=== PATIENT | female | born 1985 | race African-American/Black ===

== ENCOUNTER 2021-09-10 12:40 | Outpatient (RCR) | payer BC, MEDICAID, SELFPAY ==
[2021-09-10] MEDS: diphenhydrAMINE HCl CAP 25 MG CAPSULE PO (14:27)
[2021-09-10] MEDS: ACETAMINOPHEN 325 MG TABLET 650 MG PO (14:27)
[2021-09-10] MEDS: FAMOTIDINE 20 MG TABLET PO (14:27)
[2021-09-10 14:49] VITALS: BP 124/66; PULSE 78; RESP 20; TEMP 36.8; O2SAT 100
[2021-09-10 15:58] VITALS: BP 127/66
--- NOTE | 2021-09-11 14:49 | PC.NURSE ---
follow up call for covid antibody infusion. Patient states she feels about the same, maybe a little better . advised patient to call primary doctor if symptoms persist.
== END 2021-09-10 16:00 | disposition home or self-care (01) ==
LOC: AMCINF 12:40
PROVIDERS: PCP Internal Medicine; Referring Provider Internal Medicine; Visit Provider Internal Medicine Hematology & Oncology
DX: Z23 Encounter for immunization (principal); U07.1 COVID-19; J44.9 Chronic obstructive pulmonary disease, unspecified
CPT/HCPCS: A9270; J7050; M0243; Q0243

== ENCOUNTER 2025-04-06 11:32 | Outpatient (CLI) | payer BC, MEDICAID, SELFPAY ==
--- NOTE | ~2025-04-06 | MM_ITS ---
EXAMINATION: MM diagnostic samson BI w mansi HISTORY: Breast pain TECHNIQUE: Additional 3-D tomosynthesis images of the breasts were performed and synthetic 2-D images were generated. CAD analysis was submitted and interpreted. COMPARISON: None BREAST PARENCHYMAL COMPOSITION: Not dense: There are scattered areas of fibroglandular density. FINDINGS: The breasts are symmetric without suspicious mass, calcifications or architectural distorti on. IMPRESSION: 1. No mammographic evidence for malignancy in either breast. 2. Routine yearly screening mammogram and regular clinical breast examination are recommended. BI-RADS Category 1: Negative Reviewed, dictated and finalized at location A. IMPRESSION: 1. No mammographic evidence for malignancy in either breast. 2. Routine yearly screening mammogram and regular clinical breast examination a re recommended. BI-RADS Category 1: Negative
--- OUTSIDE RECORDS SUMMARY | 2025-04-06 11:35 | XMS_ITS | Clinical Summary ---
Author Organization [facility] Address [address] [place] [address] Care Team Providers Care Coal Sample Tester Name Role Phone Candelaria Tello MD Primary Care Provider [phone] Source Comments [facility],non-owned Affiliates and Associated Physician Practices is amultiple site organization consisting of ambulatory clinics and hospital sitesin [place], [place], [place] and [place]. This disclosure is being madepursuant to the Care Everywhere program and may not contain all information available regarding this patient. Last updated 18.[facility] Allergies Active Allergy Reactions Criticality Noted Date Comments Citrullus Vulgaris Itching,Wheezing Medium 12/01/2024 watermelon Latex Itching Medium 10/30/2016 Peanut Extract Allergy Skin Test Itching,Wheezing Medium 12/01/2024 Medications * This document contains information received from the source organization and may not represent a complete record from that organization. * Be aware that medications may not be up to date on this document. Alwaysverify current medications with the patient. albuterol HFA (Proventil; Ventolin; Proair) 108 (90 Base) MCG/ACT inhaler Inhale 2 (two) puffs by mouth every 6 hours as needed 10/17/20 24 Active Slynd 4 MG TABS tablet Take 1 (one) tablet by mouth once daily 06/30/20 24 Active escitalopram (Lexapro) 20 MG tablet Take 1 (one) tablet by mouth once daily 11/28/20 24 Active Trelegy Ellipta 100-62.5-25 MCG/ACT Inhale 1 (one) puff by mouth once daily 10/17/20 24 Active amitriptyline (Elavil) 10 MG tablet Take 2 (two) tablets by mouth at bedtime 12/18/19 25 Active HYDROcodone-ac etaminophen (Midvale) 5-325 MG tablet Take 1 (one) tablet by mouth 2 times daily as needed For pain. 12/08/19 25 Active amoxicillin-cl avulanate (Augmentin) 875-125 MG tablet Take 1 (one) tablet by mouth 2 times daily with morning and evening meal 20 tablet 01/11/20 25 Active Additional Information Patient not taking.Reported on 02/03/2025 predniSONE (Deltasone) 10 MG tablet 40mg po qam x 2days, 30mg po qam x 2days, 20mg po qam x 2days, 10mg po qam x 2days 20 tablet 01/11/20 25 Active Additional Information Patient not taking.Reported on 02/03/2025 azithromycin (Zithromax) 250 MG tablet Take 2 tabs po day one, then take 1 tab po daily for 4 days. 6 tablet 03/30/20 25 Active ferrous sulfate 325 (65 FE) MG tablet Take 1 (one) tablet by mouth 3 times daily with meals Discontin ued(List Clean-Up) Vit-Fe Fumarate-FA ( VITAMIN) 28-0.8 MG tablet Take 1 (one) tablet by mouth once daily 025 Discontin ued(List Clean-Up) fluticasone-sa lmeterol hfa (Advair HFA) 230-21 MCG/ACT Inhale 2 (two) puffs by mouth 2 times daily 03/17/20 24 025 Discontin ued(List Clean-Up) Wegovy 0.5 MG/0.5ML pen Inject 0.5 (one-half) mg subcutaneously every 7 days 11/16/20 24 025 Discontin ued(List Clean-Up) valACYclovir (Valtrex) 1 GM tablet Take 1 (one) tablet by mouth once 12/06/19 25 025 Discontin ued(List Clean-Up) ondansetron, disintegrating , (Zofran ODT) 4 MG tablet DISSOLVE ONE TABLET BY MOUTH EVERY 8 HOURS NEEDED FOR NAUSEA. 1ST LINE FOR UP TO 3 DAYS 01/15/20 25 025 Discontin ued(List Clean-Up) citalopram (CeleXA) 20 MG tablet Take 1 (one) tablet by mouth once daily 025 Discontin ued(List Clean-Up) Active Problems Problem Noted Date Diagnosed Date Chronic sinusitis 01/03/2025 Allergic rhinitis 01/03/2025 Sickle cell trait 05/27/2018 Alpha-thalassemia 01/25/2016 Overview (01/03/2025): HEME: Dr. Pritchard at [facility] Anemia 02/24/2012 Overview (01/03/2025): Anemia Encounters Date Type Department Care Team Description 03/30/2025 Telephone [facility] [address] [place] [address] Abdiel Allen MD Sinusitis 02/03/2025 8:45 AM PSYCH SPECIALIST Office Visit [facility] - ENT [address], [facility] [address] [place] [address] Abdiel Allen MD Nasal congestion (Primary Dx); Recurrent sinus infections; Daily headache; Nasal deformity, acquired; Sinus pressure; Nasal drainage; Acute cough; Chronic rhinitis; Chronic pansinusitis; Nasal turbinate hypertrophy; Deviated septum 02/03/2025 Travel 01/20/2025 Travel 01/11/2025 11:30 AM PSYCH SPECIALIST - 01/11/2025 11:59 PM PSYCH SPECIALIST Hospital Encounter [facility] [address] [place] [address] Abdiel Allen MD Discharge Disposition: Home or Self Care 01/11/2025 10:30 AM PSYCH SPECIALIST Office Visit [facility] - [facility]NT [address], [facility] [address] [place] [address] Abdiel Allen MD Nasal congestion (Primary Dx); Sinus pressure; Nasal drainage; Recurrent sinus infections 01/11/2025 Travel 01/10/2025 Travel 01/09/2025 Telephone [facility] [address] [facility], [place] [address] Abdiel Allen MD Sinus Problem from Last 3 Months Immunizations Immunization Administration Dates Next Due INFLUENZA VACCINE, TRIV. (AF LURIA, FLUZONE TRIVALENT; 6MO+) (IIV3) 08/30/2012 PNEUMOCOCCAL PPV VACCINE 11/30/2004 TDAP (7yrs+) 12/29/2019,12/05/2014 Social History Tobacco Use Types Packs/Day Years Used Date Smoking Tobacco: Never Smokeless Tobacco: Never Tobacco Cessation:Counseling Given: Not Answered Alcohol Use Standard Drinks/Week Comments No 0 (1 standard drink = 0.6 oz pur e alcohol) Comments No Sex and Gender Information Value Date Recorded Sex Assigned at Not on file Legal Sex Female 6:06 AM PSYCH SPECIALIST Gender Identity Not on file Sexual Orientation Not on file Last Filed Vital Signs Vital Sign Reading Time Taken Comments Blood Pressure 120/80 02/03/2025 8:41 AM PSYCH SPECIALIST Pulse 101 02/03/2025 8:41 AM PSYCH SPECIALIST Temperature - - Respiratory Rate 18 10/30/2016 10:00 PM PSYCH SPECIALIST Oxygen Saturation - - Inhaled Oxygen Concentration - - Weight 76.2 kg (168 lb) 03/29/2025 11:27 AM CDT Height 162.6 cm (5' 4 ) 03/29/2025 11:27 AM CDT Body Mass Index 28.84 03/29/2025 11:27 AM CDT Plan of Treatment Upcoming Encounters Date Type Department Care Team (Latest Contact Info) Description 04/07/2025 7:25 AM CDT Hospital Encounter [facility] [address] [place] [address] Abdiel Allen MD [address] [place] [address] Surgery General 04/07/2025 7:25 AM CDT Anesthesia Event [facility] [address] [place] [address] Maria Dolores Michael, BAGG[employer] PORTER HEAD-SUPERVISING FIRE MARSHAL [address] [facility] [place] [address] 04/07/2025 7:25 AM CDT - 04/07/2025 10:45 AM CDT Surgery [facility] [address] [place] [address] Abdiel Allen MD [address] [facility] [place] [address] ETHMOIDECTOMY, SPHENOIDOTOMY, MAXILLARY ANTROSTOMY, FRONTAL SINUSOTOMY, SEPTOPLASTY, TURBINOPLASTY, OUTFRACTURE NASAL TURBINATES, BILATERAL 04/12/2025 9:45 AM CDT Office Visit [facility] - ENT [address], [place] [address] [place] [phone] Abdiel Allen MD [address] [facility] [address] [place] [address] 04/27/2025 9:00 AM CDT Office Visit [facility] - Family Medicine [address] [place] [address] [place] [address] [facility] [address] [place] [address] Scheduled Procedures Name Priority Associated Diagnoses Date/Ti me ENDOSCOPIC SINUS WITH NAVIGATION Chronic pansinusitis Deviated nasal septum Nasal turbinate hypertrophy 04/07/2025 7:25 AM CDT Health Maintenance Due Date Last Done Comments HIV SCREENING 2001 HEPATITIS B VACCINE (1 of 3 - 19+ 3-dose series) 2005 PAP SMEAR 03/11/2020 03/11/2017 COVID-19 VACCINE ( - 2023-2 5 season) 2024 DEPRESSION SCREENING 11/30/2024 INFLUENZA VACCINE (Season Ended) 2025 08/12/2019, 09/29/2018, 08/30/2012 DTAP/TDAP/TD VACCINES (3 - T d or Tdap) 12/29/2029 12/29/2019, 12/05/2014 ZOSTER VACCINE (1 of 2) 2036 PNEUMOCOCCAL VACCINE Aged Out 11/30/2004 No long er eligible based on patient's age to complete this topic HEPATITIS C SCREENING Completed 10/07/2024 , 10/07/2024 HIB VACCINE Aged Out No longer eligi ble based on patient's age to complete this topic HPV VACCINE Aged Out No longer eligi ble based on patient's age to complete this topic MENINGOCOCCAL (Group B) VACCINE SHARED DECISION-MAKING Aged Out No longer eligible based on patient's age to complete this topic MENINGOCOCCAL GROUPS A/C/Y/W VACCINE Aged Out No longer eligible b ased on patient's age to complete this topic Procedures Procedure Name Priority Date/Time Associated Diagnosis Comments CT SINUS WO CONTRAST Routine 01/11/2025 12:09 PM PSYCH SPECIALIST Sinus pressure Recurrent sinus infections Nasal drainage from Last 3 Months Results * CT Sinus Wo Contrast (01/11/2025 12:09 PM PSYCH SPECIALIST) Anatomical Region Laterality Modality Head Computed Tomogra phy 01/11/2025 2:33 PM PSYCH SPECIALIST Impressions 01/11/2025 3:37 PM PSYCH SPECIALIST IMPRESSION: 1.Moderate paranasal sinus disease with sclerotic changes of the maxillary sinuses, suggestive of chronic pansinusitis. Air-fluid levels within the bilateral maxillary sinuses are suggestive of acute bilateral maxillary sinusitis. Obstruction of the bilateral ostiomeatal complexes and frontal recesses. 2.Partial opacification of the bilateral mastoid air cells. The report is dictated by Pretty Hay MD, (residential air sealing technician) I, Kevin Feliz MD have personally reviewed and interpreted this examination/study. > Interpreting Provider: Kevin Feliz MD on 01/11/2025 3:37 PM Narrative 01/11/2025 3:37 PM PSYCH SPECIALIST PROCEDURE: CT SINUS WO CONTRAST, DATE/TIME OF EXAM: 01/11/2025 12:10 PM, LOCATION [facility] INDICATION: J34.89: Sinus pressure J32.9: Recurrent sinus infections J34.89: Nasal drainage ADDITIONAL CLINICAL INFORMATION: Ordering Provider Reason For Exam: Technologist Note: Additional: EXAMINATION: Computed tomography (CT) of the paranasal sinuses without contrast TECHNIQUE: CT of the paranasal sinuses was performed without contrast according to standard protocol. CT dose reduction technique was used, including Automated Exposure Control. COMPARISON: No prior study is available for comparison at the time of this dictation. FINDINGS: Moderate paranasal sinus disease with partial opacification of the bilateral maxillary and ethmoid sinuses. Air-fluid levels within the bilateral maxillary sinuses are suggestive of acute bilateral maxillary sinusitis. Sclerotic changes of the maxillary sinuses, right greater than left, suggestive of chronic pansinusitis. No bone erosions. The ostiomeatal complexes are obstructed. Partial opacification of the bilateral sphenoid and frontal sinuses. The frontal recesses are obstructed.The nasal septum is at midline. The orbits including the globes, optic nerves, retrobulbar fat and extraocular muscles appear normal. The hard palate, mandible, and temporomandibular joints appear normal. The mastoid air cells are partially opacified bilaterally. No acute facial bone fractures are identified. No soft tissue abnormality is identified. Procedure Note Kevin Feliz MD - 01/11/2025 PROCEDURE: CT SINUS WO CONTRAST, DATE/TIME OF EXAM: 01/11/2025 12:10PM, LOCATION [facility] INDICATION: J34.89: Sinus pressure J32.9: Recurrent sinus infections J34.89: Nasal drainage ADDITIONAL CLINICAL INFORMATION: Ordering Provider Reason For Exam: Technologist Note: Additional: EXAMINATION: Computed tomography (CT) of the paranasal sinuses without contrast TECHNIQUE: CT of the paranasal sinuses was performed without contrast according to standard protocol. CT dose reduction technique was used, including Automated Exposure Control. COMPARISON: No prior study is available for comparison at the time ofthis dictation. FINDINGS: Moderate paranasal sinus disease with partial opacification of the bilateral maxillary and ethmoid sinuses. Air-fluid levels within the bilateral maxillary sinuses are suggestive of acute bilateral maxillary sinusitis. Sclerotic changes of the maxillary sinuses, right greaterthan left, suggestive of chronic pansinusitis. No bone erosions. Theostiomeatal complexes are obstructed. Partial opacification of the bilateralsphenoid and frontal sinuses. The frontal recesses are obstructed.The nasalseptum is at midline. The orbits including the globes, optic nerves, retrobulbar fat and extraocular muscles appear normal. The hard palate, mandible, and temporomandibular joints appear normal. The mastoid air cells arepartially opacified bilaterally. No acute facial bone fractures are identified. No soft tissue abnormality is identified. IMPRESSION: 1.Moderate paranasal sinus disease with sclerotic changes of themaxillary sinuses, suggestive of chronic pansinusitis. Air-fluid levels within the bilateral maxillary sinuses are suggestive of acute bilateral maxillary sinusitis. Obstruction of the bilateral ostiomeatal complexes andfrontal recesses. 2.Partial opacification of the bilateral mastoid air cells. The report is dictated by Pretty Hay MD, (residential air sealing technician) I, Kevin Feliz MD have personally reviewed and interpreted this examination/study. > Interpreting Provider: Kevin Feliz MD on 01/11/2025 3:37 PM Abdiel Allen MD CT ORDERABLES Final Resu lt from Last 3 Months Insurance [facility] MEDICAID - OUT OF STATE [facility] MEDICAID - [place] Care Teams Coal Sample Tester Relationship Specialty [place] [address] [phone] PCP - General Family Medicine 01/03/25
--- OUTSIDE RECORDS SUMMARY | 2025-04-06 11:35 | XMS_ITS | Clinical Summary ---
Author Organization [facility] Address [address], [address] [address] Phone Care Team Providers Care Tax Appraiser Name Role Phone Ayana Serrano MD Unavailable [phone] Elma Sanchez MD Primary Care Provider [phone] Allergies Active Allergy Reactions Criticality Noted Date Comments Latex Rash 01/25/2016 Peanut Extract Allergy Skin Test Itching Medications ferrous sulfate 325 (65 Fe) MG Tablet Take 1 Tab by mouth 2 times daily. Reported on 02/25/2017 180 Tab 7 Active Additional Information Patient not taking.Reported on 01/15/2025 poly-vitamin - IRON (POLY--ELOISA WITH IRON) Solution Take 1 mL by mouth three times a week. Active budesonide-formo terol fumarate (SYMBICORT) 80-4.5 MCG/ACT AerosolIndicatio ns:Moderate asthma with acute exacerbation, unspecified whether persistent take 2 Puffs by inhalation 2 times daily. 1 Inhaler 3 8 Active Additional Information Patient not taking.Reported on 01/15/2025 montelukast (SINGULAIR) 10 MG TabletIndication s:Moderate asthma with acute exacerbation, unspecified whether persistent Take 1 Tab by mouth daily. 90 Tab 3 8 Active sertraline (ZOLOFT) 50 MG TabletIndication s:Post depression Take 1 Tab by mouth daily. 90 Tab 1 9 Active Additional Information Patient not taking.Reported on 01/15/2025 albuterol (PROAIR HFA) 108 (90 Base) MCG/ACT Aerosol SolutionIndicati ons:Mild intermittent asthma without complication take 2 Puffs by inhalation every 4 hours as needed for Wheezing. 8.5 g 4 9 Active citalopram (CeleXA) 20 MG Tablet Take 20 mg by mouth daily. Active Active Problems Problem Noted Date Diagnosed Date Bilateral foot pain 12/29/2018 Mild intermittent asthma without complication Fatigue 09/27/2018 Thalassemia 05/27/2018 Sickle cell trait 05/27/2018 Iron deficiency 05/27/2018 Asthma 01/25/2016 Alpha-thalassemia 01/25/2016 Overview (01/25/2016): HEME: Dr. Pritchard at [facility] Encounters Date Type Department Care Team Description 01/15/2025 2:25 PM BANQUET MANAGER [facility] [address] [place] [address] Carolina Dang APRN, BRYCE Gastroenteritis (Primary Dx); Vomiting, unspecified vomiting type, unspecified whether nausea present; Diarrhea, unspecified type; Body aches Discharge Disposition: Discharged to home or Selfcare 01/15/2025 Travel from Last 3 Months Immunizations Immunization Administration Dates Next Due Influenza Vaccine greater than 3 yrs 08/30/2012 Pneumococcal Vaccine, Unspecified Formulation TDAP Vaccine 12/05/2014 Family History Medical History Relation Name Comments Heart Attack Father Asthma Mother Hypertension Mother Relation Name Status Comments Father Mother Alive Social History Tobacco Use Types Packs/Day Years Used Date Smoking Tobacco: Never Smokeless Tobacco: Never Tobacco Cessation:Counseling Given: No Alcohol Use Standard Drinks/Week Comments No 0 (1 standard drink = 0.6 oz pur e alcohol) Comments No Sex and Gender Information Value Date Recorded Sex Assigned at Not on file Legal Sex Female 12:08 AM CDT Gender Identity Not on file Sexual Orientation Not on file Last Filed Vital Signs Vital Sign Reading Time Taken Comments Blood Pressure 112/68 01/15/2025 2:31 PM BANQUET MANAGER Pulse 108 01/15/2025 2:31 PM BANQUET MANAGER Temperature 36.7 C (98.1 F) 01/15/2025 2:31 PM BANQUET MANAGER Respiratory Rate 18 01/15/2025 2:31 PM BANQUET MANAGER Oxygen Saturation 100% 01/15/2025 2:31 PM BANQUET MANAGER Inhaled Oxygen Concentration - - Weight 73.8 kg (162 lb 12.8 oz) 05/06/2019 2:24 PM CDT Height 165.1 cm (5' 5 ) 05/06/2019 2:24 PM CDT Body Mass Index 27.09 05/06/2019 2:24 PM CDT Plan of Treatment Health Maintenance Due Date Last Done Comments Hepatitis C Virus (HCV) Screening 1985 Hepatitis B Immunization (1 of 3 - 19+ 3-dose series) 2005 Pneumococcal Immunization Combined (1 of 2 - PCV) 2005 11/30/2004, 11/30/2004 HPV/Cotest 2016 Cervical Cancer Screening (CCS) 03/11/2020 Pap Smear 03/11/2020 03/11/2017 Influenza Immunization (#1) 2024 08/30/2012 SARS-COV-2 Immunization ( season) 2024 Td Immunization Every 10 Yea rs (Adults With 1 Tdap) 12/29/2029 12/29/2019, 12/05/2014 Respiratory Syncytial Virus (RSV) Immunization (Adult) (1 - 1-dose 75+ series) 2061 Meningococcal Immunization (ACWY) Aged Out No longer eligible b ased on patient's age to complete this topic Rotavirus Immunization Aged Out No lo nger eligible based on patient's age to complete this topic Procedures Procedure Name Priority Date/Time Associated Diagnosis Comments POC INFLUENZA A AND B BY MOLECULAR Routine 01/15/2025 2:40 PM BANQUET MANAGER Vomiting, unspecified vomiting type, unspecified whether nausea present Diarrhea, unspecified type Body aches POC SARS-COV-2 BY MOLECULAR Routine 01/15/2025 2:35 PM BANQUET MANAGER Vomiting, unspecified vomiting type, unspecified whether nausea present Diarrhea, unspecified type Body aches PATHOLOGY CYTOLOGY JAVA SOFTWARE ENGINEER Routine 03/11/2017 from Last 3 Months or Most Recently Relevant to Health Maintenance Results * POC INFLUENZA A AND B BY MOLECULAR (01/15/2025 2:40 PM BANQUET MANAGER) INFLUENZA A RNA Negative Negative, Invalid INFLUENZA B RNA Negative Negative, Invalid PROCEDURE CONTROL Valid 01/15/2025 2:40 PM BANQUET MANAGER us Carolina Dang APRN, BRYCE POINT OF CARE TEST ING (MANUAL) Final Result * POC SARS-COV-2 BY MOLECULAR (01/15/2025 2:35 PM BANQUET MANAGER) SARSCOV2 Negative Negative, INVALID PROCEDURE CONTROL Valid 01/15/2025 2:35 PM BANQUET MANAGER us Carolina Dang APRN, BRYCE POINT OF CARE TEST ING (MANUAL) Final Result * PATHOLOGY CYTOLOGY JAVA SOFTWARE ENGINEER (03/11/2017) Specimen of unknown material (specimen) us Not On File Provider PATHOLOGY/CYTOLOGY ORDERABL ES Final Result from Last 3 Months or Most Recently Relevant to Health Maintenance Insurance [facility] Care Teams Tax Appraiser Relationship Specialty Start Date End Date Elma Sanchez MD [address] [place] [address] PCP - General Internal Medicine 04/20/19 Ayana Serrano MD Consulting Physician Obstetrics & Gynecology 08/25/17
--- OUTSIDE RECORDS SUMMARY | 2025-04-06 11:35 | XMS_ITS ---
Author Organization [facility] Address [address] [facility] [address] [place], [place] [address] Care Team Providers Care Seed Technician Name Role Phone Elma Sanchez Primary Care Provider Willi Dennison Unavailable [phone] REASON FOR VISIT IOB//aw Encounters Encounter Location Date Provider Diagnosis [facility] [address] [place] [phone] 01/13/2025 Willi Calderon Plan Of Treatment No Information Progress Notes * Katherine BELLEDOB:[birth year] (39 yo F)Acc No.[id number]:01/13/2025 Progress Note Patient: González PELAEZah Provider: Josie Calderon DO :1985 A ge:39 Y S ex:Female Date:01/13/2025 Address:[address] [place], [place] [address] [facility] Pcp:Elma Sanchez Subjective: * Chief Complaints: * 1 . IOB//aw. * Medical History: Objective: * Vitals: * Physical Examination: Assessment: Plan: * Treatment: * * Electronic signature of Savanna Calderon DO, [id number] on 04/06/2025 at 11:35 AM CDT Sign off status: Pending * Provider: Josie Calderon DO Date: 01/13/2025 Generated for Vonniei ng/Faxing/eTransmitting on: 0 04/06/2025 11:35 AM CDT
--- OUTSIDE RECORDS SUMMARY | 2025-04-06 11:35 | XMS_ITS ---
Author Organization [facility] Address [address] [facility] [address] [place], [place] [id number] Care Team Providers Care Cotton Ginner Helper Name Role Phone Elma Sanchez Primary Care Provider UnavailWilli Mack Unavailable [phone] REASON FOR VISIT recheck IOB//aw Encounters Encounter Location Date Provider Diagnosis [facility] [address] [facility] [address] [place], [place] [phone] 01/25/2025 Willi Calderon Plan Of Treatment No Information Progress Notes * Katherine BELLEDOB:[birth year] (39 yo F)Acc No.[id number]:01/25/2025 Progress Note Patient: Katherine PELAEZ Provider: Josie Calderon DO :1985 A ge:39 Y S ex:Female Date:01/25/2025 Address:[address] [place], [place] [address] Pcp:Elma Sanchez Subjective: * Chief Complaints: * 1 . recheck IOB//aw. * HPI: S inusitis: 11/07 has had 4 abx in the past year. Augmentin, Zpack, and amoxicillin. Has tried tns- Flonase for over 6 weeks- pcp sent for ct sinus done at [facility]. Has at least 4 sinus infections within a year. Sense of smell has diminished. She gets a lot of drainage, congestion, hard to breathe out of nose, pain/pressure in face with her sinus infections. Has also tried and failed astelin.She also uses sinus rinses daily. A llergy: hx allergies on flonase- tried astelin as well. usually just some seasonal. * Medical History: Objective: * Vitals: * Physical Examination: Assessment: Plan: * Treatment: * * Electronic signature of Savanna robb DO Yumiko, [id number] on 04/06/2025 at 11:35 AM CDT Sign off status: Pending * Provider: Josie Calderon DO Date: 0 01/25/2025 Generated for Faustino dover/Allen/Donovan on: 0 04/06/2025 11:35 AM CDT History and Physical Notes * HPI (History of Present Illness) Category Sub-Category Detail Notes Category Not es Sinusitis 11/07 has had 4 abx in the past year. Augmentin, Zpack, and amoxicillin. Has tried tns- Flonase for over 6 weeks- pcp sent for ct sinus done at [facility]. Has at least 4 sinus infections within a year. Sense of smell has diminished. She gets a lot of drainage, congestion, hard to breathe out of nose, pain/pressure in face with her sinus infections. Has also tried and failed astelin.She also uses sinus rinses daily Allergy hx allergies on flonase- tried astelin as well. usually just some seasonal.
--- OUTSIDE RECORDS SUMMARY | 2025-04-06 11:35 | XMS_ITS | Patient Health Record ---
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 If intended option is not shown, discontinue and re-order from Quick Search* Active HYDROcodone-Acetamino phen 7.5-325 MG 1 tablet Orally take one tablet 1 hour prior to procedure then every 6 hours prn pain for 4 days 11/15/2024 Active diazePAM 10 MG 1 tablet Orally take one tablet 1 hour prior to procedure then second tablet upon arrival to procedure for 1 days 11/15/2024 Active Amitriptyline HCl *Please review and pick correct strength-formulatio n from [employer] options. If intended option is not shown, discontinue and re-order from Quick Search* Active Escitalopram Oxalate *Please rev iew and pick correct strength-formulatio n from [employer] options. If intended option is not shown, discontinue and re-order from Quick Search* Active Albuterol Sulfate *Please review and pick correct strength-formulatio n from [employer] options. If intended option is not shown, discontinue and re-order from Quick Search* Active Advair HFA *Please review a nd pick correct strength-formulatio n from [employer] options. If intended option is not shown, discontinue and re-order from Quick Search* Active Problems Problem Type SNOMED Code ICD Code Onset Dates Problem Status W/U Status Risk Notes Problem Allergic rhinitis, unspecified (J30.9) Active confirmed Problem Chronic sinusitis (22525992) Chronic sinusitis, unspecified (J32.9) Active confirmed Encounters Encounter Location Date Provider [facility] [address] [facility] [address] [place], [place] [id number] 11/12/2024 Provider Migration [facility] [facility] [address] [place], [place] [id number] 11/07/2024 Willi Calderon Allergic rhinitis, unspecified J30.9 ; Nasal congestion R09.81 ; Hypertrophy of nasal turbinates J34.3 ; Acute recurrent pansinusitis J01.41 and Deviated nasal septum J34.2 [facility] [address] [facility] [address] [place], [place] [id number] 11/15/2024 Willi Calderon Allergic rhinitis, unspecified J30.9 ; Nasal congestion R09.81 ; Hypertrophy of nasal turbinates J34.3 ; Acute recurrent pansinusitis J01.41 and Deviated nasal septum J34.2 [facility] [address] [facility] [address] [place], [place] [id number] 11/15/2024 Willi Calderon [facility] [address] [facility] [address] [place] [place] [id number] 01/09/2025 iWlli Calderon Assessments Encounter Date Diagnosis (ICD Code) Assessment Notes Treatment Notes Treatment Clinical Notes Section Notes 11/07/2024 Allergic rhinitis, unspecified (ICD-10 - J30.9) On TNS, topical antihistamines with control discussed possible mqt and immunotherapy, will stay on meds for now 11/15/2024 Allergic rhinitis, unspecified (ICD-10 - J30.9) On TNS, topical antihistamines with control discussed possible mqt and immunotherapy, will stay on meds for now 11/15/2024 Nasal congestion (ICD-10 - R09.81) 11/07/2024 Hypertrophy of nasal turbinates (ICD-10 - J34.3) 11/07/2024 Nasal congestion (ICD-10 - R09.81) 11/07/2024 Acute recurrent pansinusitis (ICD-10 - J01.41) Meets criteria for Acute recurrent sinusitis. has had appropriate medical management with pcp to this point Meds used include amoxicillin, augmentin, azithromycin, oral steroids, TNS, saline irrigations symptoms are facial pressure/pain over sinuses, decreased smell, yellow nasal drainage, congestion. her symptoms typically improve with antibiotics and recurr multiple times per year. she has had a recent non contrast CT of her sinuses, the report shows multisinus mucosal thickening. will need to obtain images and discuss surgical options. 11/15/2024 Hypertrophy of nasal turbinates (ICD-10 - J34.3) 11/15/2024 Acute recurrent pansinusitis (ICD-10 - J01.41) Meets criteria for Acute recurrent sinusitis. 7 infections in the last 12 mo has had appropriate medical management with pcp to this point Meds used include amoxicillin, augmentin, azithromycin, oral steroids, TNS, saline irrigations symptoms are facial pressure/pain over sinuses, decreased smell, yellow nasal drainage, congestion. her symptoms typically improve with antibiotics and recurr multiple times per year. she has had a recent non contrast CT of her sinuses, the report shows multisinus mucosal thickening. reviewed today with hypertrophic turbinates, left max opacification. frontal frontal thickening. Given recurrent acute, I recommend that we treat b/l max, frontal, sphenoid, turbinates. Bleeding, general anesthesia, infection, CSF leak, further surgery, anosmia, septal perforation, , CVA, and atrophic rhinitis, injury to adjacent structures, including teeth, injury to the orbit causing potential blindness. 11/07/2024 Deviated nasal septum (ICD-10 - J34.2) 11/15/2024 Deviated nasal septum (ICD-10 - J34.2) 11/07/2024 Other topical nasal steriods, claire med sinus rinse, MQT and CT sinuses The multiple etiologies of chronic sinus disease were discussed with the patient today, including: anatomical obstruction, immune dysfunction, allergies, and vasomotor rhinitis. Some patients have anatomical/mechani shashi obstructions which prevent the sinuses from draining properly. Some patients have immune dysfunctions which make them prone to chronic infections. Some patients have a condition called vasomotor rhinitis, which is a condition where the nose reacts to pollutants, colognes, or barometric pressure changes. Some patients may also have underlying allergies which exacerbate or cause their sinus symptoms. All of the above conditions are exacerbated in patients who use tobacco due to the chronic irritant exposure. Also, the patient was told that sinusitis may trigger headaches but not all headaches are sinus related. Each of these possible etiologies will be evaluated during this patient's care. Plan Of Treatment Pending Test Test Name Order Date Submucosal resection of turbinate 2023 Balloon Sphenoid * 11/15/2024 Balloon MMA* 11/15/2024 Balloon Frontal * 11/15/2024 Insurance Providers Payer Name Payer Address Payer Phone Subscriber Number Group Number Insured Name Patient Relationship to Insured Coverage Start Date Coverage End Date [facility] [address] [place] [address] [id number] Katherine Patel Self - patient is the insured Medical (General) History Medical History History ICD Code Anxiety disorder Sinusitis Nose problems asthma Thalassemia Surgical History Surgery Date(Month/Year) tonsillectomy 1989 cholecystectomy 2020
--- OUTSIDE RECORDS SUMMARY | 2025-04-06 11:35 | XMS_ITS | Clinical Summary ---
Author Organization [facility] Address [address] [place] [address] Phone Care Team Providers Care Toxicologist Name Role Phone [facility] [place], External Provider Primary Care Provider U navailable Allergies No known active allergies Medications fluticasone propion-salmetero L (ADVAIR DISKUS,WIXELA INHUB) 100-50 mcg/dose disk inhaler Take 1 Puff by inhalation 2 times daily. Active albuterol (PROVENTIL,VENTOL IN) 0.63 mg/3 mL Solution for Nebulization Take 0.63 mg by inhalation one time only. Active amitriptyline HCl (AMITRIPTYLINE ORAL) Take by mouth. Activ e Social History Tobacco Use Types Packs/Day Years Used Date Smoking Tobacco: Never Tobacco Cessation:Counseling Given: Not Answered Feeling Safe Answer Date Recorded Are you in a relationship wi th someone who hurts you emotionally and/or physically? No 09/24/2023 Comments Unknown Sex and Gender Information Value Date Recorded Sex Assigned at Not on file Legal Sex Female 8:51 AM CDT Gender Identity Not on file Sexual Orientation Not on file Last Filed Vital Signs Vital Sign Reading Time Taken Comments Blood Pressure 117/77 09/24/2023 1:12 PM CDT Pulse 83 09/24/2023 1:12 PM CDT Temperature 36.8 C (98.2 F) 09/24/2023 1:12 PM CDT Respiratory Rate 18 09/24/2023 1:12 PM CDT Oxygen Saturation 100% 09/24/2023 1:12 PM CDT Inhaled Oxygen Concentration - - Weight 70.3 kg (155 lb) 09/24/2023 11:21 AM CDT Height 165.1 cm (5' 5 ) 09/24/2023 11:21 AM CDT Body Mass Index 25.79 09/24/2023 11:21 AM CDT Plan of Treatment Health Maintenance Due Date Last Done Comments HEPATITIS B VACCINES (1 of 3 - 19+ 3-dose series) 2005 HPV/Cotest (21-29) 2007 CERVICAL CANCER SCREENING 2016 HPV/Cotest (30-65) 2016 PAP SMEAR 2016 INFLUENZA VACCINE (#1) 2024 08/30/2012 DTAP/TDAP/TD VACCINES (3 - Td or Tdap) 12/29/2029 12/29/2019, 12/05/2014 HPV VACCINES Aged Out No longer eligi ble based on patient's age to complete this topic [place] [address] [employer] P[employer] 

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
--- OUTSIDE RECORDS SUMMARY | 2025-04-06 11:36 | XMS_ITS | Referral Summary ---
Author Organization [facility] leia Address [address] [place] [address] Care Team Providers Care Traffic Rate Analyst Name Role Phone Elton Gallego MD Unavailable [phone] Cassie Billy MD Unavailable [phone] Willi Figueroa MD Primary Care Provi karina Encounters Date Type Department Care Team Description 02/22/2025 7:30 AM CDT Office Visit [facility] Primary Care at [address] [place] [phone] Willi Figueroa MD Encounter to establish care with new doctor (Primary Dx); Class 1 obesity without serious comorbidity with body mass index (BMI) of 30.0 to 30.9 in adult, unspecified obesity type; Mild intermittent asthma without complication; Chronic pansinusitis; Anxiety; Other insomnia; Mixed hyperlipidemia 01/09/2025 4:12 PM 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 If she has a 0 score no further investigation will be required. I will plan to see her in follow-up to discuss any score other than 0. Family history of coronary artery disease in fat her 04/17/2021 Biliary dyskinesia 03/05/2021 Overview (03/05/2021): Added automatically from request for surgery [id number] Assessment & Plan (03/28/2021 3:39 PM CDT): [...] (01/03/2021): Added automatically from request for surgery [id number] Assessment & Plan (03/05/2021 11:52 AM CDT): HIDA scan is consistent with biliary dyskinesia. Given the persistent and worsening symptoms will set her up for cholecystectomy. Risks and benefits have been explained. This has included post cholecystectomy diarrhea. Postoperative restrictions have been gone over as well. Pre-admission testing will be sent in. All questions have been answered. Assessment & Plan (01/12/2021 5:30 PM FISHERIES INSPECTOR): Chronic post prandial abdominal pain. Schedule EGD then HIDA scan to evaluate gall bladder dysfunction. Maintain low fat diet. Continue Nexium daily for now. Follow up 1 month. Sprain of medial collateral ligament of right kn ee 09/03/2019 Mild intermittent asthma without complication Fatigue 09/27/2018 Iron deficiency 05/27/2018 Sickle cell trait 05/27/2018 Alpha-thalassemia 01/25/2016 Overview (01/03/2021): Overview: HEME: [facility] Pritchard at [facility] Anemia 10/23/2014 Overview (03/05/2017): Anemia Infection of ear 10/04/2014 Overview (03/05/2017): Ear infection Resolved Problems Problem Noted Date Diagnosed Date Resolved Date Bilateral foot pain 12/29/2018 02/23/20 25 Asthma 01/25/2016 02/22/2025 Immunizations Immunization Administration Dates Next Due Hep B, Adolescent or Pediatric 03/06/1999,1997,09/22/1997 Influenza, Quadrivalent, Tana l Culture-based MDCK, Antibiotic Free, Intramuscular 08/12/2019 Influenza, Trivalent, IM (MDV) 08/30/2012 Influenza, Unspecified 09/29/2018 Pneumococcal Polysaccharide PPV23 12/30/2018,11/2004 Sars-CoV-2, Unspecified 01/28/2024,12/09/2021, Tdap 12/29/2019,01/17/2017,12/05/2014 Social History Tobacco Use Types Packs/Day Years [...] on file Legal Sex Female 5:59 PM FISHERIES INSPECTOR Gender Identity Not on file Sexual Orientation [...] 02/22/2025 7:40 AM CDT Plan of Treatment Not on file Procedures Procedure Name Priority Date/Time Associated Diagnosis Comments XR CHEST 1 VIEW ED 01/09/2025 3:38 PM FISHERIES INSPECTOR INFLUENZA A/B, RSV, AND COVID-19 PCR STAT 01/09/2025 3:14 PM FISHERIES INSPECTOR HEPATITIS C ANTIBODY Routine 10/07/2024 3:50 PM FISHERIES INSPECTOR THINPREP IMAGING PAP AND HPV MRNA E6/E7 REFLEX HPV 16,18/45 Routine 03/11/2017 11:16 AM CDT from Last 3 Months or Most Recently Relevant to Health Maintenance Results * XR Chest 1 Vw Portable (01/09/2025 3:38 PM FISHERIES INSPECTOR) Anatomical Region Laterality Modality Body, Chest N/A Computed Radiogr aphy 01/09/2025 3:49 PM FISHERIES INSPECTOR Narrative 01/09/2025 3:50 PM FISHERIES INSPECTOR EXAM DESCRIPTION: XR CHEST 1 VIEW REASON [...] Philip Moyer D.O. PS: PS Report ID: [id number] Reading Location: [place] [address] Procedure Note Philip Moyer DO - 01/09/2025 [...] Philip Moyer D.O. PS: PS Report ID: [id number] Reading Location: [place] [address] Mick Urias MD IMG XR PROCEDURES Final Result * Influenza A/B, RSV, and COVID-19 PCR Nasopharyngeal (01/09/2025 3:14 PM FISHERIES INSPECTOR) COVID-19 RNA Negative Negative Influenza A RNA Negative Negative [facility] Influenza B RNA Negative Negative [facility] ([place]) RSV RNA Negative Negative [facility] Comment: Interpretive data: Testing performed by [facility]. This test is performed using the iMove Xpert Xpress CoV-2/Flu/RSV plus assay. This is a multiplex, real- time reverse transcriptase PCR assay intended for the qualitative detection of nucleic acid from SARS-CoV-2, influenza A, influenza B, and respiratory syncytial virus. This assay has been cleared by the [place] Food and Drug administration. The performance characteristics have been verified by the [facility]. Results must be considered in the clinical context, and a negative result does not rule out infection. Interpretive Data last revised 2023 Nasopharyngeal 01/09/2025 3: 14 PM FISHERIES INSPECTOR 01/09/2025 3:59 PM FISHERIES INSPECTOR Narrative [facility] ([place]) - 01/09/2025 4:39 PM FISHERIES INSPECTOR Is the Patient experiencing symptoms consistent with COVID?->Yes Mick Urias MD LAB MICROBIOLOGY - GENERAL ORD ERABLES Final Result [facility] ([place]) 1 [facility] Department [place] [address] * Hepatitis C antibody Blood (10/07/2024 3:50 PM FISHERIES INSPECTOR) Hep C Ab Nonreactive Nonreactive Comment: Interpretive [...] last revised on 2020. Testing performed by: [facility], [address] [place] [address], [place]., [address] Blood 10/07/2024 3:50 PM FISHERIES INSPECTOR 10/07/2024 7:03 PM FISHERIES INSPECTOR us Elma Sanchez MD LAB MICROBIOLOGY - GENERAL ORDERABLES Final Result [facility] ([place]) 1 [facility] Department [place] [address] * ThinPrep Imaging Pap and HPV mRNA [...] has been evaluated with computer assisted technology. Medical Coding Technician SEE NOTE QUE ST HISTORICAL RESULTS Comment: PCM, CT(ASCP) CT screening location: [address] [place] [address] [place] [address] Test performed [place] [place] [address] [place] [address] Director: MARVIN HOOD MD 03/11/2017 11:1 6 AM CDT us Ayana Serrano MD LAB CYTOLOGY ORDERA BLES Final Result [facility] HISTORICAL RESULTS from Last 3 Months or Most Recently Relevant to Health Maintenance Insurance [facility] Advance Directives For more information, please contact: [phone] * Full Code (Latest Code Status on File) Date Activated Date Inactivated Comments 03/20/2021 5:15 PM 03/21/2021 11:32 PM * Full Code Date Activated Date Inactivated Comments 01/11/2021 9:21 AM 01/11/2021 3:33 PM * Full Code Date Activated Date Inactivated Comments 01/11/2021 9:21 AM 01/11/2021 9:21 AM Care Teams Traffic Rate Analyst Relationship Specialty Start Date End Date Willi Figueroa MD [address] [place] [address] PCP - General Family Practice 02/21/25 Elton Gallego MD [address] [place] [address] [address] [place] [address] Anesthesiologist Pain Management 10/15/22 MariajoseCassie downey MD [address] [place] [address] Surgeon Medical Oncology 10/19/24
--- OUTSIDE RECORDS SUMMARY | 2025-04-06 11:36 | XMS_ITS | Encounter Summary ---
Author Organization [facility] Address [address] [place] [address] Care Team Providers Care Attendant [facility] Name Role Phone Elma Sanchez MD Primary Care Provider [phone] Elton Gallego MD Unavailable [phone] MariajoseCassie downey MD Unavailable [phone] Willi Figueroa MD Primary Care Provi karina Encounter Details Date Type Department Care Team (Late st Contact Info) Description 11/25/2021 Telephone [facility] [address] [place] [address] Sophie Sanchez, RT Social History Tobacco Use Types Packs/Day Years Used Date Smoking Tobacco: Never Smokeless Tobacco: Never Alcohol Use Standard Drinks/Week Comments No 0 [...] points, staff should administer the PHQ-9) 0 03/20/2021 Exercise Vital Sign Answer Date Recorde d On average, how many days pe r week do you engage in moderate to strenuous exercise (like a brisk walk)? 5 days 07/18/2020 On average, how many minutes do you engage in exercise at this level? 60 min 07/18/2020 Comments Unknown Sex and Gender Information Value Date Recorded Sex Assigned at Not on file Legal Sex Female 5:59 PM HOISTING ENGINEER PILE DRIVING Gender Identity Not on file Sexual Orientation Not on file documented as of this encounter Plan of Treatment Not on file documented as of this encounter Visit Diagnoses Not on filedocumented in this encounter Additional Health Concerns Infection Onset Date Last Indicated Resolved Time COVID: Recovered Comment:Added based on recent COVID infection. 09/17/2021 09/27/2021 01/15/2022 3:[address] COVID: Suspected 12/16/2022 12/16/2022 12/16/2022 11:56 AM HOISTING ENGINEER PILE DRIVING COVID: Suspected 09/27/2023 09/27/2023 09/27/2023 6:11 PM CDT COVID: Suspected 10/17/2024 10/17/2024 10/17/2024 9:56 AM HOISTING ENGINEER PILE DRIVING COVID: Suspected 01/09/2025 01/09/2025 01/09/2025 4:40 PM HOISTING ENGINEER PILE DRIVING documented as of this encounter Care Teams Attendant [facility] Relationship Specialty Start Date End Date Elma Sanchez MD [address] [place] [address] PCP - General 08/08/19 02/20/25 Willi Figueroa MD [address] [facility] [address] [place] [address] PCP - General Family Practice 02/21/25 Elton Gallego MD [address] [place] [address] [facility] [address] [place] [address] Anesthesiologist Pain Management 10/15/22 Cassie Billy MD [address] [place] [address] Surgeon Medical Oncology 10/19/24 documented as of this encounter
--- OUTSIDE RECORDS SUMMARY | 2025-04-06 11:36 | XMS_ITS ---
Author Organization [facility] Address [address] [facility] [address] [place], [place] [address] Care Team Providers Care Glassware Verifier Name Role Phone Elma Sanchez Primary Care Provider Willi Dennison Unavailable [phone] Encounters Encounter Location Date Provider Diagnosis [facility] [address] [facility] [address] [place], [place] [address] 01/09/2025 Willi Calderon Plan Of Treatment No Information Progress Notes * Katherine BELLEDOB:[birth year] (39 yo F)Acc No.[id number]:01/09/2025 Patient: González PELAEZah :1985 A ge:39 Y S ex:Female [facility] [facility] [facility] [address] [place], [address] * true * Date: Generated for Vonniei ng/Farhiannong/eTransmitting on: 0 04/06/2025 11:35 AM CDT
== END 2025-04-06 11:33 | disposition home or self-care (01) ==
PROVIDERS: Visit Provider Nurse Practitioner Obstetrics & Gynecology
DX: N64.4 Mastodynia (principal)
CPT/HCPCS: 77062; 77066; G0279